=== PATIENT | male | born 1975 | race Two or more races ===

== ENCOUNTER 2024-07-04 08:28 | Emergency (ER) | payer OTHER ==
[~2024-07-04] VITALS: Ht 172.7 cm; Wt 70.0 kg
[2024-07-04 15:26] VITALS: BP 135/74; PULSE 72; RESP 16; TEMP 98.7; O2SAT 97
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
[2024-07-04] MEDS ORDERED: IBUP1TAB5 PO (16:35)
[2024-07-05] MEDS ORDERED: IBUP-1455 PO (00:10)
[2024-07-05] MEDS ORDERED: HYDR-4902 PO (00:10)
== END 2024-07-04 16:55 | disposition home or self-care (01) ==
LOC: EDBD 08:28 → ER 08:28
DX: S52.92XA Unspecified fracture of left forearm, initial encounter for closed fracture (principal); Y08.89XA Assault by other specified means, initial encounter; Y93.89 Activity, other specified; Y92.89 Other specified places as the place of occurrence of the external cause; Y99.8 Other external cause status
CPT/HCPCS: 29125; 73090

== ENCOUNTER 2024-07-04 21:03 | Emergency (ER) | payer SELFPAY ==
[~2024-07-04] VITALS: Ht 182.9 cm; Wt 91.0 kg
[~2024-07-04 21:03] MED LIST: IBUP1TAB5 PO
--- NOTE | 2024-07-04 21:21 | ECG ---
[facility] Test Date: 2024-07-04 Test Time: 21:09:43 Pat Name: ABDELRAHMAN TAVAREZ Department: ED Room: Gender: M Machine Ii Coremaker: cindy : 1975 Requested By: EMERGENCY EMERGENCY Order Number: [id number] Reading MD: Geremias Armstrong Measurements Intervals [place] Rate: 66 P: 23 MS: 130 QRS: 28 QRSD: 92 T: -18 QT: 425 QTc: 446 Interpretive Statements Sinus rhythm Borderline repolarization abnormality Electronically Signed On 07-12-2024 10:56:51 PDT by Geremias Armstrong Please click the below link to view image of tracing.
[2024-07-04] MEDS: KETOROLAC TROMETH 60MG/2ML VIAL IM ONE (22:15)
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
[2024-07-04] MEDS: HYDROcodone-ACET 5/325MG TAB PO ONE (22:51)
--- NOTE | 2024-07-04 23:44 | DVH ---
EXAMINATION: XY RIBS BILATERAL INDICATION: fall, chest wall pain COMPARISON: None TECHNIQUE: Frontal view of the chest and 4 views of the bilateral ribs history FINDINGS: No focal consolidation, pleural effusion or significant pneumothorax. Normal cardiomediastinal silhou ette. No displaced bilateral rib fracture. IMPRESSION: 1. No acute cardiopulmonary disease. 2. No displaced bilateral rib fracture.
[2024-07-05] MEDS ORDERED: HYDR-4902 PO (00:10)
[2024-07-05] MEDS ORDERED: IBUP-1455 PO (00:10)
[2024-07-05] MEDS ORDERED: hydrALAZINE HCL 20 MG/ML VL IM ONE (00:15)
[2024-07-05] MEDS: hydrALAZINE HCL 10 MG TAB PO ONE (01:10)
[2024-07-05 02:22] VITALS: TEMP 98.1
[2024-07-05 02:23] VITALS: O2SAT 99
[2024-07-05 05:12] VITALS: BP 151/95; PULSE 88; RESP 18
== END 2024-07-05 03:38 | disposition home or self-care (01) ==
LOC: ER 21:03 → EDBD 21:03 → MERGE 21:03 → ER 07-05 03:37
DX: S20.211A Contusion of right front wall of thorax, initial encounter (principal); I10 Essential (primary) hypertension; Z98.890 Other specified postprocedural states; X58.XXXA Exposure to other specified factors, initial encounter; Y93.89 Activity, other specified; Y92.89 Other specified places as the place of occurrence of the external cause; Y99.8 Other external cause status
CPT/HCPCS: 71111; 93005